=== PATIENT | male | born 1965 | race African-American/Black ===

== ENCOUNTER 2016-09-16 20:30 | Emergency (ER) ==
--- NOTE | 2016-09-16 21:09 | PROVIDER DOCUMENTATION ---
HPI-General Adult - General Chief Complaint: Mouth Pain Stated Complaint: LT SIDE JAW SWOLLEN Time Seen by Provider: 09/16/16 20:43 Allergies/Adverse Reactions: Patient Allergies Allergy/AdvReac Type Severity Reaction Status Date / Time No Known Allergies Allergy Verified 09/11/14 12:17 Home Medications: Home Medication List Medication Instructions Recorded Confirmed Last Taken Type Clindamycin [Cleocin] 300 mg PO TID #0 capsule 09/17/14 Unknown Rx Hydrocodone/APAP 7.5 mg/325 mg 1 each PO Q4H PRN PRN #0 tablet 09/17/14 Unknown Rx [[place]-7.5] Clindamycin [Cleocin] 300 mg PO Q6HR #28 capsule 09/16/16 Unknown Rx Sulfamethoxazole/Trimethoprim 1 each PO BID #14 tablet 09/16/16 Unknown Rx [Bactrim Ds Tablet] - History of Present Illness -Gen Adult Nature of Presenting Problems: Pt has a history of left parotiditis and presents with left jaw and facial swelling with no dental complaint. He has no other PMH. Review of Systems - Adult - REVIEW OF SYSTEMS - ADULT Constitutional: reports: no symptoms reported. denies: see HPI, chills, fever, fatique, night sweats, weight gain Eyes: reports: no symptoms reported. denies: discharge, dry eyes, decreased vision, blurred vision, eye pain, redness Ears, Nose, Mouth & Throat: reports: see HPI, mouth swelling, throat swelling. denies: ear pain, tinnitus, epistaxis, nose pain, mouth/dental pain, hoarseness Cardiovascular: reports: no symptoms reported. denies: chest pain, edema, heart murmur, irregular heart rate, palpitations, poor circulation, syncope Respiratory: reports: no symptoms reported. denies: chronic cough, cough, dyspnea on exertion, excessive sputum production, hemoptysis, pleurisy, shortness of breath, wheezing Gastrointestinal: reports: see HPI, poor appetite. denies: abdominal pain, hematemesis, constipation, diarrhea, frequent heartburn, nausea, rectal bleeding , vomiting Genitourinary: reports: no symptoms reported. denies: dysuria, flank pain, hesitency, incontinence, urinary retention, urgency Musculoskeletal: reports: no symptoms reported. denies: bone pain, back pain, frequent leg cramps, joint pain, joint swelling, muscle aches, muscle weakness, neck pain Integumentary: reports: no symptoms reported. denies: hives, hair loss, mole changes, nail changes, rash, skin sores/ulcer, skin thickening Neurological: reports: no symptoms reported. denies: ataxia, dizziness/vertigo , headache/migraines, numbness, seizure, slurred speech, syncope, tremors Psychiatric: reports: no symptoms reported. denies: anxiety, anti-depressant use, alcohol/drug dependence, depression, emotional problems, insomnia, panic attacks Endocrine: reports: no symptoms reported. denies: change in skin pigment, excessive sweating, cold intolerance, heat intolerance, increased thirst, polyuria Hematologic/Lymphatic: reports: no symptoms reported. denies: blood clots, easy bruising, low blood count, lymphedema, prolonged bleeding, swollen lymph nodes, transfusions Allergic/Immunologic: reports: no symptoms reported. denies: allergic reactions , allergic rhinitis, asthma, eczema, frequent infections, hay fever, positive PPD, urticaria All Other Systems: Reviewed and Negative Past History - Adult - PAST MEDICAL HISTORY-ADULT Review of Records: reports: Old Records Reviewed, Nursing Assessment Review, Medications Reviewed, Social history reviewed & non-contributory. Major Childhood Illnesses: reports: denies history Cardiovascular: reports: denies history Respiratory: reports: denies history Gastrointestinal: reports: denies history Obstetrical/Gynecological: reports: denies history Genitourinary: reports: denies history Musculoskeletal: reports: denies history Neurological: reports: denies history Endocrine/Immune: reports: denies history Other Conditions: reports: denies history, other Additional History: paroditis - PRIOR SURGERIES/PROCEDURES Surgical/Procedure History: reports: recent surgery - PRIOR HOSPITALIZATIONS Prior Hospitalizations: reports: none - IMMUNIZATION STATUS Childhood Immunizations: See Nurse Assessment Flu Vaccine: See Nurse Assessment - FAMILY HISTORY Family History: reviewed, not pertinent - SOCIAL HISTORY Smoking: cigarettes, greater than 1 pack/day Provider spent 3-5 mins advising pt. on dangers of tobacco.: Discussed manners to quit use, and f/u contacts for add'l counseling. Substance Use: none/never Alcohol Use Frequency: never Living Situation: alone Physical Exam-General - PHYSICAL EXAM-ADULT Initial Vital Signs Reviewed: Yes - CONSTITUTIONAL General Appearance: appears well, alert, no apparent distress - EYES Eyes: PERRL/EOMI, pink conjunctivae - HEAD, EARS, NOSE, MOUTH & THROAT HENMT: normocephalic/atraumatic, moist mucous membranes, other (left facial swelling that extends past the jaw line into the neck). negative: pharyngeal erythema, tonsillar exudate - NECK Neck: non-tender, full range of motion. negative: trachial deviation - RESPIRATORY Respiratory: chest non-tender, lungs clear, normal breath sounds, no pleuratic chest pain, no respiratory distress, no accessory muscle use - CARDIOVASCULAR Cardiovascular: normal peripheral pulses, regular rate, rhythm - GASTROINTESTINAL (ABDOMEN) Abdominal Exam: normal bowel sounds, non tender, soft - GENITOURINARY Male Genitalia: deferred - MUSCULOSKELETAL Back Exam: normal inspection, no CVA tenderness Extremity: normal range of motion, non-tender, normal gait - SKIN Integumentary: normal color, normal turgor, warm/dry - NEUROLOGIC Neurologic: senior android software engineer II-XII nml as tested, grossly normal - PSYCHIATRIC Psych/Mental Status: normal mood/affect, normal thought content, normal thought process, oriented x 3 Progress - PLAN OF CARE/RESULTS Progress/Plan/Lab Results: Laboratory Tests 09/16/16 09/16/16 21:12 21:12 WBC 8.10 RBC 5.07 Hgb 15.0 Hct 43.7 MCV 86.2 MCH 29.6 MCHC 34.3 RDW Std Deviation 13.7 Plt Count 195 MPV 11.3 H Neut % (Auto) 52.4 Lymph % (Auto) 30.0 [place] % (Auto) 14.8 H Eos % (Auto) 2.7 Baso % (Auto) 0.1 Neut # (Auto) 4.24 Lymph # (Auto) 2.43 [place] # (Auto) 1.20 H Eos # (Auto) 0.22 Baso # (Auto) 0.01 Sodium 140 Potassium 3.8 Chloride 101 Carbon Dioxide 26 Anion Gap 13 BUN 16 Creatinine 1.0 Estimated GFR/1.73 m2 > 60 BUN/Creatinine Ratio 16 Glucose 81 Calculated Osmolality 280 Calcium 9.1 Total Bilirubin 0.28 AST 20 ALT 19 Alkaline Phosphatase 71 Total Protein 7.7 Albumin 4.4 Globulin 3.3 Albumin/Globulin Ratio 1.3 Orders Category Date Time Status NECK W/CONTRAST [CT] Stat Exams 09/16/16 20:48 Taken CBC WITH DIFF [HEME] Stat Lab 09/16/16 21:12 Completed COMPREHENSIVE METABOLIC PANEL [CHEM] Stat Lab 09/16/16 21:12 Completed Clindamycin [Cleocin] Med 09/16/16 22:58 Once 450 mg PO NOW ONE Sulfamethoxazole/Tmp D.s. [Septra Ds] Med 09/16/16 22:59 Once 1 each PO NOW ONE Vital Signs - 24 hr 09/16/16 20:38 Temperature 98.3 F Pulse Rate 85 Respiratory 18 Rate Blood Pressure 156/87 O2 Sat by Pulse 100 Oximetry - CT/MRI 1 CT Study: Neck CT Results: left facial and perimandibular cellulitis (rad) Departure - Departure Time of Disposition Order: 23:00 DIAGNOSIS: Facial cellulitis Disposition: HOME 01 Certified Medical Emergency: Emergent Condition: Good Additional Instructions: ED Follow Up Instructions: You have been treated by a care provider in the Emergency Department. These instructions are being provided to you so you can have an understanding of how to care for yourself upon discharge. Upon discharge from the Emergency Department, you are responsible for making arrangements for follow-up care by a physician of your choice. Take all prescribed medications as directed. Return to the Emergency Department immediately for any new or worsening symptoms. You may call the Physician Referral phone number at [phone] to obtain a list of Physicians who are taking new patients. Prescriptions: Clindamycin [Cleocin] 300 mg PO Q6HR #28 capsule Sulfamethoxazole/Trimethoprim [Bactrim Ds Tablet] 1 each PO BID #14 tablet Referrals: None,PCP [Primary Care Provider] - Attestation - Physician/ WILLIE Attestation Patient care was provided by Advanced Practice Provider:: Yes Advanced Practice Provider:: Darion Talamantes Advanced Practice Provider documentation review:: The Mid-level provider documentation, treatment plan and medical decision making was reviewed by the physician who agrees with all treatment and medical decision making by the [facility]. Physician Attestation - Physician Attestation I, the provider, attest to the following statement:: Darion Talamantes Physician documentation Attestation:: This documentation recorded by the scribe accurately reflects the service I personally performed and the decisions made by me.
[2016-09-16 21:32] LABS: MANUAL DIFF NEEDED? NO
[2016-09-16 21:53] LABS: BASO% 0.1 % (0.0-0.8); EOS# 0.22 X1000 (0.0-0.7); EOS% 2.7 % (0.0-10.0); HEMATOCRIT 43.7 % (42.0-52.0); LYMPH# 2.43 X1000 (1.2-3.4); MCH 29.6 PG (27-31); MCHC 34.3 g/dL (33-37); MCV 86.2 FL (81-99); MONO% 14.8 % (1.7-9.3); MPV 11.3 FL (7.4-10.4); NEUT% 52.4 % (42.2-75.2); PLT 195 X1000 (130-400); RBC 5.07 XMIL (4.7-6.1)
[2016-09-16 21:56] LABS: AGAP 13; ALBUMIN 4.4 g/dL (3.5-5.0); ALKALINE PHOSPHATASE 71 U/L (32-122); BUN 16 mg/dL (8-22); CALCIUM 9.1 mg/dL (8.8-10.2); CHLORIDE 101 mmol/L (98-107); COSMO 280; GOT 20 U/L (10-34); GPT 19 U/L (10-44); POTASSIUM 3.8 mmol/L (3.5-5.1); SODIUM 140 mmol/L (136-145); TCO2 26 mmol/L (25-35); TOTAL BILIRUBIN 0.28 mg/dL (0.20-1.00); TOTAL PROTEIN 7.7 g/dL (6.3-8.3)
[2016-09-16] MEDS ORDERED: CLEOCIN PO ONE (22:58)
[2016-09-16] MEDS ORDERED: SEPTRA DS PO ONE (22:59)
[2016-09-16 23:23] VITALS: BP 157/80
[2016-09-16] MEDS ORDERED: MOTRIN PO ONE (23:29)
--- NOTE | 2016-09-17 08:22 | Diag Imaging Result Document ---
PROCEDURE NAME: NECK W/CONTRAST - 09/16/2016 CT NECK WITH CONTRAST: Exam performed with intravenous contrast. A dose- reduction protocol was used. COMPARISON: 09/14/2014. FINDINGS: There is shallow and deep subcutaneous soft tissue swelling at the left face, primarily the lower face over the mandible. There is no discrete mandibular lesion identified beneath the swelling. The inflammation abuts and may involve the inferior portion of the left masseter muscle. The left parotid and submandibular glands are not obviously involved. There is no discrete focal abscess identified. There are mildly enlarged submandibular and high internal jugular lymph nodes on the left. There are multiple nonspecific small submandibular, submental, and cervical lymph nodes elsewhere. The inflammatory changes of the right parotid gland, which were seen on the previous exam, appear to have resolved. There is a 1.5 x 1.7 cm calcification in the vicinity of the anterior/superior right submandibular gland. This appears stable and could conceivably represent a large chronic salivary stone. There is mild prominence of ducts in the right submandibular gland which is stable. The right submandibular gland does not appear acutely inflamed. IMPRESSION: 1. Cellulitis involving superficial and deep subcutaneous tissues of lower left face. No discrete abscess identified. No discrete underlying periodontal disease identified. There are mildly enlarged submandibular and high internal jugular lymph nodes on the left near the swelling. 2. Chronic calcification on the right, possibly representing large submandibular gland stone. No associated submandibular inflammation. 3. Apparent resolution of the right parotid inflammation which was seen on the previous exam. The right parotid remains mildly prominent in size but does not appear substantially inflamed. A [facility] physician provided preliminary results at 10:49 p.m. on 09/16/2016. MTDD
== END 2016-09-16 23:33 | disposition home or self-care (01) ==
LOC: ED 20:30
DX: L03.211 Cellulitis of face (principal); R22.0 Localized swelling, mass and lump, head; F17.210 Nicotine dependence, cigarettes, uncomplicated; Z71.6 Tobacco abuse counseling
CPT/HCPCS: 70491; 80053; 85025; Q9967